=== PATIENT | male | born 1970 | race Two or more races ===

== ENCOUNTER 2017-08-02 15:11 | Emergency (ER) | payer MEDICAID ==
[~2017-08-02] VITALS: Ht 170.2 cm; Wt 76.4 kg
[2017-08-02] MEDS ORDERED: LIDO700A32 TOP (16:01)
[2017-08-02 16:05] VITALS: BP 140/65
== END 2017-08-02 16:06 | disposition home or self-care (01) ==
LOC: ER 15:11
DX: M25.512 Pain in left shoulder (principal); M25.511 Pain in right shoulder; Z79.899 Other long term (current) drug therapy
CPT/HCPCS: 99283